=== PATIENT | male | born 1965 | race Caucasian/White ===

== ENCOUNTER 2024-02-09 18:10 | Emergency (ER) | payer BC, OTHER, SELFPAY ==
[2024-02-09] VITALS (13 sets, daily range): BP systolic 120–145; BP diastolic 60–90; PULSE 57–86; RESP 16–24; TEMP 36.8; O2SAT 93–100; BMI 30.3
[2024-02-09 18:46] LABS: Glucose Point of Care > 600 mg/dL (70-110)
[2024-02-09 18:56] LABS: Basophils # 0.1 10^3/uL (0.0-0.1); Basophils % 0.7 %; Eosinophils # 0.1 10^3/uL (0.0-0.8); Eosinophils % 0.4 %; Hematocrit 43.9 % (37-53); Lymphocytes # 2.6 10^3/uL (0.8-4.8); Lymphocytes % 21.7 %; Mean Corpuscular Hemoglobin 28.7 pg (27-33); Mean Corpuscular Volume 86.9 fl (82-101); Mean Platelet Volume 9.5 fL (7.4-10.4); Monocytes # 0.9 10^3/uL (0.2-0.9); Monocytes % 7.1 %; Neutrophils # 8.35 10^3/uL (1.8-7.7); Nucleated Red Blood Cells % 0 %; Platelet Count 439 10^3/cmm (157-399); Red Blood Count 5.05 10^6/uL (3.85-5.65)
[2024-02-09 19:10] LABS: Ketone (Acetest) Serum Negative (Negative)
--- NOTE | 2024-02-09 19:14 | W.ED.AMS ---
HPI - Altered Mental Status General: Chief Complaint: Altered Mental Status Stated Complaint: Hasnt been self. urinating alot Time Seen by Provider: 02/09/24 18:34 History of Present Illness: Patient presents to the ER with confusion over the last couple weeks. Patient says been getting worse. Patient says he is a diabetic but has not been taking any medicine for over the last 10 years. Patient says not really felt good or not really had a whole lot for the last week. Upon arrival to the ER patient did urinate upon himself. Patient has no other complaints at this time. Accu-Chek upon ER arrival blood glucose was greater than 600. Related Data Allergies Allergy/AdvReac Type Severity Reaction Status Date / Time No Known Allergies Allergy Verified 02/09/24 18:31 Review of Systems General: Reports: 10 or more systems reviewed and unremarkable except in HPI and below Physical Exam Const: COMMON NORMALS: no acute distress, average body habitus, patient oriented x3, no limitations, healthy appearing, alert and well nourished HENMT: COMMON NORMALS: normocephalic, atraumatic, hearing grossly normal bilaterally, external ears normal, Normal external nose present and moist oral mucous membranes HEAD & SCALP: normocephalic and atraumatic NOSE: Normal external nose present EXTERNAL EAR: Yes external ears normal Neck/C-Spine: COMMON NORMALS: no JVD Chest: COMMONS NORMALS: normal inspection of the chest and normal palpation of entire chest wall Resp: COMMON NORMALS: normal respiratory effort, No retractions, No use of accessory muscles and clear to auscultation bilaterally AUSCULTATION: clear to auscultation bilaterally Cardio: COMMON NORMALS: no JVD, regular rate, regular rhythm, S1 normal heart sound present, S2 normal heart sound present, No gallops present (Cardio), No clicks present (Cardio), No murmurs present (Cardio) and No rub (Cardio) RATE: regular rate RHYTHM: regular rhythm HEART SOUNDS: S1 normal heart sound present and S2 normal heart sound present GI: COMMON NORMALS: Normal to inspection, nondistended, normoactive bowel sounds present, Soft to palpation, non-tender, No hepatosplenomegaly present and no masses PALPATION: Yes Soft to palpation and Yes No hepatosplenomegaly present Neuro: COMMON NORMALS: patient oriented x3 SENSORIUM/ORIENTATION: Yes alert Course Vital Signs: Vital signs: Vital Signs Temperature 98.2 F 02/09/24 18:27 Pulse Rate 59 L 02/09/24 21:00 Respiratory Rate 22 H 02/09/24 21:00 Blood Pressure 120/60 02/09/24 21:00 Pulse Oximetry 96 02/09/24 21:00 Oxygen Delivery Me thod Room Air 02/09/24 19:30 MDM - Altered Mental Status Medical Decision Making Patient's blood sugar was 850, after tenets of IV insulin and liter normal saline I did decrease all way down to 482, patient is not in DKA due to his nonketosis and nonacidotic state. Dr. Espinoza at [facility] was consulted who agreed to take the patient to their med/tele bed since we have no beds at our facility. Medical Records I reviewed the patient's medical records. Lab Data I reviewed the patient's lab results. 02/09/24 18:50 02/09/24 18:50 Laboratory Results WBC 12.10 10^3/uL (3.29-11.43) H 02/09/24 18:50 RBC 5.05 10^6/uL (3.85-5.65) 02/09/24 18:50 Hgb 14.50 g/dL (11.27-16.99) 02/09/24 18:50 Hct 43.9 % (37-53) 02/09/24 18:50 MCV 86.9 fl (82-101) 02/09/24 18:50 MCH 28.7 pg (27-33) 02/09/24 18:50 MCHC 33.0 g/dL (30-55) 02/09/24 18:50 RDW 12.0 % (12.1-15.1) L 02/09/24 18:50 Plt Count 439 10^3/cmm (157-399) H 02/09/24 18:50 MPV 9.5 fL (7.4-10.4) 02/09/24 18:50 Neut % (Auto) 69.0 % 02/09/24 18:50 Lymph % (Auto) 21.7 % 02/09/24 18:50 [place] % (Auto) 7.1 % 02/09/24 18:50 Eos % (Auto) 0.4 % 02/09/24 18:50 Baso % (Auto) 0.7 % 02/09/24 18:50 Neut # (Auto) 8.35 10^3/uL (1.8-7.7) H 02/09/24 18:50 Lymph # (Auto) 2.6 10^3/uL (0.8-4.8) 02/09/24 18:50 [place] # (Auto) 0.9 10^3/uL (0.2-0.9) 02/09/24 18:50 Eos # (Auto) 0.1 10^3/uL (0.0-0.8) 02/09/24 18:50 Baso # (Auto) 0.1 10^3/uL (0.0-0.1) 02/09/24 18:50 Nucleated RBC % (auto) 0 % 02/09/24 18:50 Nucleated RBCs # 0.0 /100WBC 02/09/24 18:50 Specimen Type Arterial 02/09/24 20:15 Sample Site Radial, left 02/09/24 20:15 ABG pH 7.45 (7.35-7.45) 02/09/24 20:15 ABG pCO2 40.0 mmHg (35-45) 02/09/24 20:15 ABG pO2 77.1 mmHg (80.0-100.0) L 02/09/24 20:15 ABG HCO3 27.9 mmol/L (22-26) H 02/09/24 20:15 ABG O2 Saturation 96.8 02/09/24 20:15 ABG Base Excess 3.7 mmol/L (-2.0-2.0) H 02/09/24 20:15 Chris Test Pos 02/09/24 20:15 A-a O2 Gradient 2.9 mmHg (5-10) L 02/09/24 20:15 Hematocrit 43.0 % (42-52) 02/09/24 20:15 Hgb O2 Saturation 95.1 % (95-100) 02/09/24 20:15 Carboxyhemoglobin 1.0 %THgb (0.4-20.1) 02/09/24 20:15 Methemoglobin 0.8 % (0.4-1.5) 02/09/24 20:15 Total Hemoglobin 14.0 g/dL (14-18) 02/09/24 20:15 Sodium 127.0 mmol/L (131-143) L 02/09/24 20:15 Potassium 3.1 mmol/L (3.5-5.0) L 02/09/24 20:15 Glucose 587.0 mg/dL (70-115) H 02/09/24 20:15 Ionized Calcium 1.2 mmol/L (1.1-1.4) 02/09/24 20:15 O2 Delivery Device Room air 02/09/24 20:15 Prosthetic Aide ID [id number] 02/09/24 20:15 Sodium 118 mmol/L (136-145) L* 02/09/24 18:50 Potassium 3.9 mmol/L (3.5-5.1) 02/09/24 18:50 Chloride 81 mmol/L (98-107) L 02/09/24 18:50 Carbon Dioxide 23 mmol/L (22-29) 02/09/24 18:50 Anion Gap 17.9 (5-19) 02/09/24 18:50 BUN 10 mg/dL (6-20) 02/09/24 18:50 Creatinine 0.7 mg/dL (0.7-1.2) 02/09/24 18:50 GFR Calculation 115.4 mL/min (90-130) 02/09/24 18:50 Glucose 847 mg/dL (65-115) H* 02/09/24 18:50 POC Glucose 482 mg/dL (70-110) H 02/09/24 20:55 Calculated Osmolality 287 mOsm/kg (285-295) 02/09/24 18:50 Calcium 9.2 mg/dL (8.5-10.5) 02/09/24 18:50 Magnesium 2.0 mg/dL (1.7-2.3) 02/09/24 18:50 Total Bilirubin 1.1 mg/dL (0.15-1.2) 02/09/24 18:50 AST 56 U/L (0-40) H 02/09/24 18:50 ALT 49 U/L (0-41) H 02/09/24 18:50 Alkaline Phosphatase 206 U/L (40-130) H 02/09/24 18:50 Total Protein 6.8 g/dL (6.6-8.7) 02/09/24 18:50 Albumin 3.7 g/dL (3.5-5.2) 02/09/24 18:50 Globulin 3.1 g/dL (1.3-4.6) 02/09/24 18:50 Serum Ketones Negative (Negative) 02/09/24 18:50 All radiology interpretation(s) finalized by discharge Discharge Plan Discharge Patient Disposition: Xfer Short-Term Hosp Clinical Impression: Altered mental status, Uncontrolled diabetes mellitus with hyperglycemia Condition: Stable Patient Instructions: Altered Mental Status (ED) Coding Level of Care Code ED Plant Attendant Or Assistant Operator for Robel Hilliard
[2024-02-09 19:20] LABS: Alanine Aminotransferase 49 U/L (0-41); Albumin Level 3.7 g/dL (3.5-5.2); Alkaline Phosphatase 206 U/L (40-130); Blood Urea Nitrogen 10 mg/dL (6-20); Calcium 9.2 mg/dL (8.5-10.5); Carbon Dioxide 23 mmol/L (22-29); Chloride 81 mmol/L (98-107); Creatinine Clr Calc Pharmacy 144.1131; Globulin 3.1 g/dL (1.3-4.6); Glomerular Filtration Rate 115.4 mL/min (90-130); Total Bilirubin 1.1 mg/dL (0.15-1.2); Total Protein 6.8 g/dL (6.6-8.7)
[2024-02-09 19:29] LABS: Osmolality Calculated 287 mOsm/kg (285-295)
[2024-02-09 19:32] LABS: Anion Gap 17.9 (5-19); Aspartate Amino Transferase 56 U/L (0-40); Potassium 3.9 mmol/L (3.5-5.1)
[2024-02-09 19:35] LABS: Glucose 847 mg/dL (65-115); Sodium 118 mmol/L (136-145)
[2024-02-09] MEDS: sodium chloride 0.9% 1,000 ML 999 ML IV (19:49)
[2024-02-09] MEDS: insulin lispro 100 unit/1 mL 10 UNIT SUBCUT (19:53)
[2024-02-09 20:19] LABS: Glucose Point of Care 545 mg/dL (70-110)
[2024-02-09 20:26] LABS: ABG PH Result 7.45 (7.35-7.45); Alveolar-Arterial Oxygen Gradi 2.9 mmHg (5-10); Base Excess ABG 3.7 mmol/L (-2.0-2.0); Blood Gas Allen Test Pos; Blood Gas Sample Site Radial, left; Blood Gas Sample Type Arterial; HCO3 ABG 27.9 mmol/L (22-26); HGB O2 Sat 95.1 % (95-100); Ionized Calcium Level - ABG 1.2 mmol/L (1.1-1.4); Methemoglobin 0.8 % (0.4-1.5); Oxygen Device ROOM AIR; Oxygen Saturation ABG 96.8; PO2 ABG 77.1 mmHg (80.0-100.0); Potassium Level - ABG 3.1 mmol/L (3.5-5.0)
[2024-02-09 20:58] LABS: Glucose Point of Care 482 mg/dL (70-110)
== END 2024-02-09 23:23 | disposition short-term general hospital (02) ==
PROVIDERS: Emergency Medicine; Emergency Provider Emergency Medicine
DX: R41.82 Altered mental status, unspecified (principal); E11.65 Type 2 diabetes mellitus with hyperglycemia
CPT/HCPCS: 36415; 36416; 36600; 80051; 80053; 82009; 82330; 82805; 82962; 83735; 85025; 96372; 99285; J1815; J7030

== ENCOUNTER 2024-02-16 06:15 | Emergency (ER) | payer OTHER, SELFPAY ==
[2024-02-16] VITALS (7 sets, daily range): BP systolic 120–135; BP diastolic 79–93; PULSE 79–118; RESP 16–24; TEMP 37; O2SAT 93–96; BMI 26.4
[2024-02-16 06:33] LABS: Glucose Point of Care 437 mg/dL (70-110)
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
--- NOTE | 2024-02-16 06:44 | XRR_ITS ---
PROCEDURE INFORMATION: Exam: XR Left Shoulder Exam date and time: 02/16/2024 6:54 AM Age: 58 years old Clinical indication: Pain and injury or trauma; Fall; Blunt trauma (contusions or hematomas); Shoulder; Left TECHNIQUE: Imaging protocol: Radiologic exam of the left shoulder. Views: 2 or more views. COMPARISON: No relevant prior studies available. FINDINGS: Bones/joints: No fracture or dislocation is noted. There are degenerative changes involving the AC joint. The glenohumeral joint is intact. Bony mineralization is normal. Soft tissues: Normal. XR/XR shoulder LT min 2V* [id number] IMPRESSION: 1. Moderate AC joint osteoarthritis.
[2024-02-16 06:52] LABS: ABG PCO2 36.6 mmHg (35-45); ABG PH Result 7.46 (7.35-7.45); Alveolar-Arterial Oxygen Gradi 4.5 mmHg (5-10); Arterial Blood Gas Hematocrit 43.2 % (42-52); Base Excess ABG 2.2 mmol/L (-2.0-2.0); Blood Gas Allen Test Pos; Blood Gas Operator Identificat SAM; Blood Gas Sample Site Radial, right; Blood Gas Sample Type Arterial; Carboxyhemoglobin 1.4 %THgb (0.4-20.1); HCO3 ABG 25.9 mmol/L (22-26); HGB O2 Sat 94.2 % (95-100); Ionized Calcium Level - ABG 1.2 mmol/L (1.1-1.4); Methemoglobin 0.5 % (0.4-1.5); PO2 ABG 69.1 mmHg (80.0-100.0); PO2 FiO2 Ratio Arterial Blood 329; Potassium Level - ABG 3.4 mmol/L (3.5-5.0); Total Hemoglobin 14.1 g/dL (14-18)
[2024-02-16 07:02] LABS: Basophils % 0.4 %; Eosinophils # 0.3 10^3/uL (0.0-0.8); Eosinophils % 2.7 %; Hematocrit 42.2 % (37-53); Lymphocytes # 1.2 10^3/uL (0.8-4.8); Lymphocytes % 10.4 %; Mean Corpuscular HGB Conc 33.6 g/dL (30-55); Mean Corpuscular Volume 86.1 fl (82-101); Mean Platelet Volume 8.6 fL (7.4-10.4); Monocytes # 0.5 10^3/uL (0.2-0.9); Monocytes % 4.4 %; Nucleated Red Blood Cells % 0 %; Platelet Count 375 10^3/cmm (157-399); Red Cell Distribution Width 12.1 % (12.1-15.1); White Blood Count 11.35 10^3/uL (3.29-11.43)
[2024-02-16 07:13] LABS: Ketone (Acetest) Serum Negative (Negative)
[2024-02-16] MEDS: sodium chloride 0.9% 1,000 ML 999 ML IV (07:14)
[2024-02-16] MEDS: insulin regular-human 100 units/1 mL 15 UNIT IVP (07:14)
[2024-02-16 07:17] LABS: Alanine Aminotransferase 29 U/L (0-41); Albumin Level 3.4 g/dL (3.5-5.2); Alcohol Level 12 mg/dL (0-10); Alkaline Phosphatase 120 U/L (40-130); Anion Gap 12.8 (5-19); Aspartate Amino Transferase 24 U/L (0-40); Blood Urea Nitrogen 12 mg/dL (6-20); Calcium 8.5 mg/dL (8.5-10.5); Carbon Dioxide 26 mmol/L (22-29); Chloride 97 mmol/L (98-107); Globulin 2.9 g/dL (1.3-4.6); Glomerular Filtration Rate 137.9 mL/min (90-130); Glucose 259 mg/dL (65-115); Osmolality Calculated 283 mOsm/kg (285-295); Potassium 3.8 mmol/L (3.5-5.1); Sodium 132 mmol/L (136-145); Total Bilirubin 1.3 mg/dL (0.15-1.2); Total Protein 6.3 g/dL (6.6-8.7)
[2024-02-16 08:12] LABS: Glucose Point of Care 206 mg/dL (70-110)
[2024-02-16 08:42] LABS: Bilirubin Urine Negative (Negative); Blood Urine Negative (Negative); Glucose Urine UA 3+ (Normal); Ketones Urine Trace (Negative); Leukocyte Esterase Urine Negative (Negative); Nitrate Urine Negative (Negative); Protein Urine Trace (Negative); Urine Appearance Clear (CLEAR); Urine Color Yellow (Yellow)
[2024-02-16 08:44] LABS: Specific Gravity, Urine 1.042 (1.005-1.030)
[2024-02-16 08:47] LABS: Add Urine Microscopic? YES; Bacteria Urine None Seen /hpf; Hyaline Casts Urine 0-4 /lpf; RBC Urine 0-2 /hpf (0-2); Squamous Epithelial Cell Urine 0-5 /hpf (0-5); WBC Urine 0-5 /hpf (0-5)
[2024-02-16 08:49] LABS: Amphetamines Screen Urine Positive (Negative); Barbiturates Screen Urine Negative (Negative); Benzodiazepines Screen Urine Negative (Negative); Cocaine Screen Urine Negative (Negative); Opiate Screen Urine Negative (Negative); PCP Screen Urine Negative (Negative); THC Screen Urine Negative (Negative)
== END 2024-02-16 09:08 | disposition home or self-care (01) ==
PROVIDERS: Emergency Provider Family Medicine
DX: M25.511 Pain in right shoulder (principal); R73.9 Hyperglycemia, unspecified; Z79.84 Long term (current) use of oral hypoglycemic drugs; Z79.4 Long term (current) use of insulin
CPT/HCPCS: 36415; 36416; 36600; 73030; 80051; 80053; 80306; 80307; 81001; 82009; 82330; 82805; 82962; 85025; 96361; 96374; 99284; J1815; J7030

== ENCOUNTER 2024-02-16 10:05 | Emergency (ER) | payer SELFPAY ==
[2024-02-16 10:20] VITALS: BP 113/70; PULSE 90; RESP 18; TEMP 36.7; O2SAT 95
--- NOTE | 2024-02-16 10:43 | W.ED.PSYCHS ---
HPI - Psych General: Chief Complaint: Psychiatric Symptoms Stated Complaint: 96 Time Seen by Provider: 02/16/24 10:12 History of Present Illness: 58-year-old male was here literally within the last hour. At that time he was complaining of shoulder pain avoid blood sugars see the note for that workup. He returns in the custody of [facility]'s department with a 96-hour hold affidavit basically states he has been resistant and noncompliant to his treating his medical issues and using drugs and alcohol. No suicidal or homicidal ideation. Labs reviewed from the previous visit today. Added other labs for medical clearance. Patient did test positive for amphetamines and he was here earlier. Related Data Home Medications Medication Instructions Recorded Confirmed insulin aspart U-100 100 unit/mL 8 unit SUBCUT TID 02/16/24 02/16/24 (3 mL) subcutaneous pen (Novolog FlexPen U-100 Insulin aspart) metformin 500 mg tablet 500 mg PO BID 02/16/24 02/16/24 Allergies Allergy/AdvReac Type Severity Reaction Status Date / Time No Known Allergies Allergy Verified 02/16/24 06:20 Review of Systems Const: Denies: fever(s) or chills Card: Denies: chest pain Resp: Denies: dyspnea GI: Denies: abdominal pain : Denies: dysuria, urinary frequency or urinary urgency Musc: Denies: neck pain or back pain Skin/Breast: Denies: rash Physical Exam Const: COMMON NORMALS: no acute distress GENERAL APPEARANCE: cooperative and comfortable ORIENTATION/CONSCIOUSNESS: Yes awake, Yes oriented to person, Yes oriented to place and Yes oriented to time HENMT: COMMON NORMALS: normocephalic and hearing grossly normal bilaterally HEAD & SCALP: normocephalic OTHER: Laceration above the right eyebrow with dried blood unchanged from when seen earlier today Resp: COMMON NORMALS: normal respiratory effort, No retractions, No use of accessory muscles and clear to auscultation bilaterally AUSCULTATION: clear to auscultation bilaterally Cardio: COMMON NORMALS: regular rate, regular rhythm and No murmurs present (Cardio) RATE: regular rate RHYTHM: regular rhythm GI: COMMON NORMALS: Soft to palpation and No hepatosplenomegaly present AUSCULTATION: Yes normoactive bowel sounds PALPATION: Yes Soft to palpation, No Tenderness to palpation present (GI), No Guarding due to palpation present (GI) and Yes No hepatosplenomegaly present Extremity: COMMON NORMALS: normal to inspection, capillary refill normal, no clubbing, cyanosis or edema, no calf tenderness and no pedal edema Neuro: SENSORIUM/ORIENTATION: Yes oriented to person, Yes oriented to place and Yes oriented to time Skin: COMMON NORMALS: no rashes or lesions noted GENERAL SKIN EXAM: no rashes or lesions noted Course Vital Signs: Vital signs: Vital Signs Temperature 98.1 F 02/16/24 10:20 Pulse Rate 90 02/16/24 10:20 Respiratory Rate 18 02/16/24 10:20 Blood Pressure 113/70 02/16/24 10:20 Pulse Oximetry 95 02/16/24 10:20 Oxygen Delivery Me thod Room Air 02/16/24 10:20 MDM - Psych Medical Decision Making 96-hour hold reviewed. Consult with psychiatry. Patient is not homicidal or suicidal he is noncompliant and has a history and ongoing of substance abuse. At this point Dr. Cruz and I both agree he does not require inpatient psychiatric care. Dr. Cruz has rescinded the 96-hour hold. Discussed inpatient importance of compliance with his diabetic regimen. Lab Data Laboratory Results Salicylates < 0.3 mg/dL (3-10) L 02/16/24 06:50 Acetaminophen < 5.0 ug/mL (10-30) L 02/16/24 06:50 No radiology studies performed this visit Discharge Plan Discharge Patient Disposition: Home Clinical Impression: Shoulder pain, right Uncontrolled diabetes mellitus with hyperglycemia Qualifiers: Diabetes mellitus type: type 2 Qualified Code(s): E11.65 - Type 2 diabetes mellitus with hyperglycemia Condition: Stable Prescriptions: No Action metformin 500 mg tablet 500 mg PO BID insulin aspart U-100 [Novolog FlexPen U-100 Insulin] 100 unit/mL (3 mL) insulin pen 8 unit SUBCUT TID Rx Instructions: subcutaneously Discharge Orders: Discharge ED (Routine); Ordered 02/16/24 Ordered By: Abel Boyer Discharge Diet: Diabetic Discharge Activity: Resume usual activity Patient Instructions: Opioid Safety, Pain Management Activity Restrictions/Additional Instructions: Thank you for choosing [facility] for your healthcare needs today. It is very important that you follow up as instructed or that you return to the Emergency Department should you have concerns or if your condition changes or worsens in any way. You are seen this morning under 96-hour hold. 96-hour hold was reviewed by the psychiatrist psychiatrist seen and evaluated you and felt you did not require inpatient psychiatric care at this time. Recommend that you follow-up with [facility]. Strongly recommend that you follow your diabetic treatment plan and follow-up with your primary care provider regularly to make adjustments to control your blood sugar. Coding Level of Care Code ED Risk Control Field Representative for Robel Hilliard
[2024-02-16 10:58] LABS: Acetaminophen < 5.0 ug/mL (10-30); Salicylate < 0.3 mg/dL (3-10)
[2024-02-16] MEDS: ketorolac 30 mg/mL INJ 60 MG IM (11:17)
[2024-02-16] MEDS: acetaminophen 325 mg Tablet 650 MG PO (11:17)
--- NOTE | 2024-02-16 13:02 | W.PM.PSYCONS ---
Providers/Reason for Consult Consulting Physican/Specialty*: Robin Pastor MD Reason for Consult*: 96 hour hold Primary Psychiatrist/Therapist: Robin Pastor MD Psych Consult HPI History of Present Illness Santiago Oviedo is a 58 year old male allegedly making statements to harm himself and resistant to treatment leading to a 96-hour hold being placed on the patient. The patient was evaluated briefly and did not appear to be intoxicated. He had endorsed having used amphetamines before in the past. He had denied having thoughts of hurting himself or others. He had reported that he did not need any psychiatric treatment at this time. Meds Home Medications and Allergies Home Medications Medication Instructions Recorded Confirmed Last Taken Type insulin aspart U-100 100 unit/mL 8 unit SUBCUT TID 02/16/24 02/16/24 Unknown History (3 mL) subcutaneous pen (Novolog FlexPen U-100 Insulin aspart) metformin 500 mg tablet 500 mg PO BID 02/16/24 02/16/24 Unknown History Allergies Allergy/AdvReac Type Severity Reaction Status Date / Time No Known Allergies Allergy Verified 02/16/24 06:20 Mental Status Exam MSE Comments: Patient is a surly male who appeared his stated age with mild distress. His speech was normal in rate rhythm and productivity. His mood was described as fine. His affect was slightly irritable. He denied any homicidal or suicidal ideation. His attention span appeared fair. His insight was poor. His judgment at this time was adequate. His impulse control appeared limited. There was no clear evidence of delusional thinking. He did not appear to be responding internal stimuli. He was alert and oriented person place time and situation. Vitals/I&O/Wt Last Vital Signs Temp 98.1 F 02/16/24 10:20 Pulse 90 02/16/24 10:20 Resp 18 02/16/24 10:20 BP 113/70 02/16/24 10:20 Pulse Ox 95 02/16/24 10:20 O2 Del Method Room Air 02/16/24 10:20 A&P Assessment and plan (1) Adjustment disorder with disturbance of conduct: (2) Methamphetamine use disorder, mild: Plan Rescinded 96 hour hold. Attestations NPU Medical Necessity Statement*: inpatient psychiatric hospitalization unnecessary. Coding Level of Care Code Acute Code for Chg Fwd Diagnoses Adjustment disorder with disturbance of conduct F43.24 Methamphetamine use disorder, mild F15.10
== END 2024-02-16 12:38 | disposition home or self-care (01) ==
PROVIDERS: Emergency Provider Family Medicine
DX: M25.511 Pain in right shoulder (principal); E11.65 Type 2 diabetes mellitus with hyperglycemia; Z79.84 Long term (current) use of oral hypoglycemic drugs; Z79.4 Long term (current) use of insulin
CPT/HCPCS: 80307; 96372; 99284; J1885

== ENCOUNTER 2024-03-20 19:41 | Emergency (ER) | payer MEDICAID, SELFPAY ==
[2024-03-20 19:51] VITALS: BP 118/76; PULSE 82; RESP 18; TEMP 37.2; O2SAT 96; BMI 27.1
[2024-03-20 20:00] LABS: Glucose Point of Care 592 mg/dL (70-110)
[2024-03-20 21:03] LABS: Basophils # 0.1 10^3/uL (0.0-0.1); Basophils % 0.9 %; Eosinophils # 0.2 10^3/uL (0.0-0.8); Hematocrit 47.6 % (37-53); Lymphocytes # 1.8 10^3/uL (0.8-4.8); Mean Corpuscular HGB Conc 32.6 g/dL (30-55); Mean Corpuscular Hemoglobin 28.8 pg (27-33); Mean Corpuscular Volume 88.3 fl (82-101); Mean Platelet Volume 8.7 fL (7.4-10.4); Monocytes # 0.9 10^3/uL (0.2-0.9); Monocytes % 10.4 %; Neutrophils # 5.54 10^3/uL (1.8-7.7); Neutrophils % 65.2 %; Nucleated Red Blood Cells % 0 %; Platelet Count 340 10^3/cmm (157-399); Red Blood Count 5.39 10^6/uL (3.85-5.65); Red Cell Distribution Width 11.9 % (12.1-15.1); White Blood Count 8.49 10^3/uL (3.29-11.43)
[2024-03-20 21:22] LABS: Alanine Aminotransferase 22 U/L (0-41); Albumin Level 3.6 g/dL (3.5-5.2); Alkaline Phosphatase 141 U/L (40-130); Aspartate Amino Transferase 15 U/L (0-40); Blood Urea Nitrogen 11 mg/dL (6-20); Calcium 9.1 mg/dL (8.5-10.5); Carbon Dioxide 22 mmol/L (22-29); Chloride 92 mmol/L (98-107); Creatinine Clr Calc Pharmacy 133.1473; Globulin 3.4 g/dL (1.3-4.6); Glomerular Filtration Rate 115.4 mL/min (90-130); Osmolality Calculated 287 mOsm/kg (285-295); Sodium 127 mmol/L (136-145)
[2024-03-20 21:27] LABS: Glucose 525 mg/dL (65-115)
[2024-03-20 22:26] VITALS: BP 155/96; PULSE 70; RESP 18; O2SAT 99
[2024-03-20 22:30] VITALS: BP 144/96; PULSE 76; O2SAT 99
--- NOTE | 2024-03-20 22:52 | CTR_ITS ---
PROCEDURE INFORMATION: Exam: CT Head Without Contrast Exam date and time: 03/20/2024 11:02 PM Age: 58 years old Clinical indication: Weakness, extremity; Patient HX: Patient having uncontrollable movements of left upper extremity. ; Additional info: Abnormal movements of only the L arm TECHNIQUE: Imaging protocol: Computed tomography of the head without contrast. Radiation optimization: All CT scans at this facility use at least one of these dose optimization techniques: automated exposure control; mA and/or kV adjustment per patient size (includes targeted exams where dose is matched to clinical indication); or iterative reconstruction. COMPARISON: No relevant prior studies available. RADIATION DOSE METRICS: Total DLP (mGy-cm): 1094.98 FINDINGS: Brain: No CT evidence for acute ischemia, mass or hemorrhage. No extra-axial fluid collection, midline shift or hydrocephalus. Cerebral ventricles: See Brain finding. Paranasal sinuses: Scattered mucosal thickening in the paranasal sinuses without fluid levels. Mastoid air cells: Visualized mastoid air cells are well aerated. Bones: Unremarkable. No acute fracture. Soft tissues: Unremarkable. CT/CT head wo con* [id number] IMPRESSION: 1. No acute intracranial findings. 2. Paranasal sinus mucosal thickening.
--- NOTE | 2024-03-20 22:53 | ED_ITS ---
HPI - Neuro Symptoms/Deficit 2 General: Chief Complaint: Neuro Symptoms/Deficit Stated Complaint: Uncontrolled left arm movement Time Seen by Provider: 03/20/24 22:29 Source: patient and family Mode of arrival: ambulatory Limitations: no limitations History of Present Illness: Patient reports uncontrollable of the movements of the left arm since February 09. Only relief is to sit on it. He does wake him from sleep sometimes due to it. No pain. Reports that he controls his sugars pretty well however he has not able to really check him or give himself shots in the past month secondary to his left arm moving. Related Data Home Medications Medication Instructions Recorded Confirmed insulin aspart U-100 100 unit/mL 8 unit SUBCUT TID 02/16/24 02/16/24 (3 mL) subcutaneous pen (Novolog FlexPen U-100 Insulin aspart) metformin 500 mg tablet 500 mg PO BID 02/16/24 02/16/24 Previous Rx's Medication Instructions Recorded levetiracetam 750 mg tablet 750 mg PO BID 30 days #60 tabs 03/21/24 (Keppra) Allergies Allergy/AdvReac Type Severity Reaction Status Date / Time No Known Allergies Allergy Verified 02/16/24 06:20 Review of Systems 2 General: Reports: 10 or more systems reviewed and unremarkable except in HPI and below Physical Exam 2 Const: COMMON NORMALS: no acute distress, average body habitus, patient oriented x3, healthy appearing, alert and well nourished GENERAL APPEARANCE: cooperative, well kempt and well developed HENMT: COMMON NORMALS: normocephalic, atraumatic, external ears normal and moist oral mucous membranes HEAD & SCALP: normocephalic and atraumatic E XTERNAL EAR: Yes external ears normal Eye: COMMON NORMALS: Equal, round and reactive pupils present, EOMs intact bilaterally and conjunctivae normal CONJUNCTIVA: Yes conjunctivae normal P UPIL: Yes Equal, round and reactive pupils present Neck/C-Spine: COMMON NORMALS: full ROM, no lymphadenopathy and supple Chest: CHEST: Yes Symmetrical chest wall rise and No Surgical scars present (Chest) Resp: COMMON NORMALS: normal respiratory effort, No retractions, No use of accessory muscles and clear to auscultation bilaterally AUSCULTATION: clear to auscultation bilaterally Cardio: COMMON NORMALS: regular rate, regular rhythm, S1 normal heart sound present, S2 normal heart sound present, No gallops present (Cardio), No clicks present (Cardio), No murmurs present (Cardio) and No rub (Cardio) RATE: r egular rate RHYTHM: regular rhythm HEART SOUNDS: S1 normal heart sound present, S2 normal heart sound present and no murmurs PERIPHERAL PULSES: o ther (Radial pulses 2+ and symmetric) GI: COMMON NORMALS: Soft to palpation, non-tender and no masses INSPECTION: No abdominal distension PALPATION: Yes Soft to palpation, No Guarding due to palpation present (GI) and No Rebound tenderness present : COMMON NORMALS: Yes no CVA tenderness BLADDER/KIDNEY EXAM: Yes no CVA tenderness Back/Pelvis: COMMON NORMALS: no CVA tenderness Extremity: COMMON NORMALS: normal to inspection, full ROM, capillary refill normal and no clubbing, cyanosis or edema Neuro: COMMON NORMALS: patient oriented x3 and CN's II-XII intact bilaterally SENSORIUM/ORIENTATION: Yes alert MOTOR EXAM: 5/5 motor strength present throughout OTHER: When patient is not sitting on his left arm, his left arm proceeds to move all over the place and uncoordinated movements and you can see some flexing of the left neck muscles during that time. When he sits on his hand there are no flexing of the left neck and shoulder muscles. Psych: APPEARANCE: Yes well kempt Skin: COMMON NORMALS: no rashes or lesions noted, no wounds, turgor normal and no jaundice GENERAL SKIN EXAM: no rashes or lesions noted and turgor normal Course 2 Vital Signs: Vital signs: Vital Signs Temperature 99.0 F 03/20/24 19:51 Pulse Rate 79 03/20/24 23:21 Respiratory Rate 18 03/20/24 22:26 Blood Pressure 152/86 03/20/24 23:21 Pulse Oximetry 96 03/20/24 23:21 Oxygen Delivery Me thod Room Air 03/20/24 23:21 MDM - Neuro Symptoms/Deficit Medical Decision Making Patient does seem to move his arm when sleeping as well, so while with his meth this could be something psychiatric, I do question if it is not a true movement disorder of some type such as alien hand syndrome. Patient already knows that he needs to follow-up with neurology encouraged that plan. Will give him a trial of Keppra for a month to see if that helps. Differential Diagnosis Likely convulsions, delirium and cerebrovascular accident Medical Records I reviewed the patient's medical records. Lab Data I reviewed the patient's lab results. 03/20/24 20:57 03/20/24 20:[address] 03/20/24 22:52 IMPRESSION: 1. No acute intracranial findings. 2. Paranasal sinus mucosal thickening. Laboratory Results WBC 8.49 10^3/uL (3.29-11.43) 03/20/24 20:57 RBC 5.39 10^6/uL (3.85-5.65) 03/20/24 20:57 Hgb 15.50 g/dL (11.27-16.99) 03/20/24 20:57 Hct 47.6 % (37-53) 03/20/24 20:57 MCV 88.3 fl (82-101) 03/20/24 20:57 MCH 28.8 pg (27-33) 03/20/24 20:57 MCHC 32.6 g/dL (30-55) 03/20/24 20:57 RDW 11.9 % (12.1-15.1) L 03/20/24 20:57 Plt Count 340 10^3/cmm (157-399) 03/20/24 20:57 MPV 8.7 fL (7.4-10.4) 03/20/24 20:57 Neut % (Auto) 65.2 % 03/20/24 20:57 Lymph % (Auto) 21.0 % 03/20/24 20:57 [place] % (Auto) 10.4 % 03/20/24 20:57 Eos % (Auto) 2.0 % 03/20/24 20:57 Baso % (Auto) 0.9 % 03/20/24 20:57 Neut # (Auto) 5.54 10^3/uL (1.8-7.7) 03/20/24 20:57 Lymph # (Auto) 1.8 10^3/uL (0.8-4.8) 03/20/24 20:57 [place] # (Auto) 0.9 10^3/uL (0.2-0.9) 03/20/24 20:57 Eos # (Auto) 0.2 10^3/uL (0.0-0.8) 03/20/24 20:57 Baso # (Auto) 0.1 10^3/uL (0.0-0.1) 03/20/24 20:57 Nucleated RBC % (auto) 0 % 03/20/24 20:57 Nucleated RBCs # 0.0 /100WBC 03/20/24 20:57 Sodium 127 mmol/L (136-145) L 03/20/24 20:57 Potassium 4.0 mmol/L (3.5-5.1) 03/20/24 20:57 Chloride 92 mmol/L (98-107) L 03/20/24 20:57 Carbon Dioxide 22 mmol/L (22-29) 03/20/24 20:57 Anion Gap 17.0 (5-19) 03/20/24 20:57 BUN 11 mg/dL (6-20) 03/20/24 20:57 Creatinine 0.7 mg/dL (0.7-1.2) 03/20/24 20:57 GFR Calculation 115.4 mL/min (90-130) 03/20/24 20:57 Glucose 525 mg/dL (65-115) H* 03/20/24 20:57 POC Glucose 367 mg/dL (70-110) H 03/20/24 23:15 Calculated Osmolality 287 mOsm/kg (285-295) 03/20/24 20:57 Calcium 9.1 mg/dL (8.5-10.5) 03/20/24 20:57 Total Bilirubin 1.0 mg/dL (0.15-1.2) 03/20/24 20:57 AST 15 U/L (0-40) 03/20/24 20:57 ALT 22 U/L (0-41) 03/20/24 20:57 Alkaline Phosphatase 141 U/L (40-130) H 03/20/24 20:57 Total Protein 7.0 g/dL (6.6-8.7) 03/20/24 20:57 Albumin 3.6 g/dL (3.5-5.2) 03/20/24 20:57 Globulin 3.4 g/dL (1.3-4.6) 03/20/24 20:57 All radiology interpretation(s) finalized by discharge ED provider radiology interpretation(s): CT personally reviewed and I see no acute abnormality. Discharge Plan Discharge Patient Disposition: Home Clinical Impression: Alien hand syndrome Uncontrolled type 2 diabetes mellitus Qualifiers: Glycemic state: with hyperglycemia Qualified Code(s): E11.65 - Type 2 diabetes mellitus with hyperglycemia Condition: Stable Prescriptions: New levetiracetam [Keppra] 750 mg tablet 750 mg PO BID 30 Days Qty: 60 0RF No Action metformin 500 mg tablet 500 mg PO BID insulin aspart U-100 [Novolog FlexPen U-100 Insulin] 100 unit/mL (3 mL) insulin pen 8 unit SUBCUT TID Rx Instructions: subcutaneously Discharge Orders: Discharge ED (Routine); Ordered 03/21/24 Ordered By: Jamie Goodwin Discharge Diet: Usual diet Discharge Activity: Resume usual activity Patient Instructions: Diabetic Hyperglycemia (ED) Activity Restrictions/Additional Instructions: Continue to follow-up with neurology as you had planned. Coding Level of Care Code ED Provider Education Specialist for Robel Hilliard
[2024-03-20] MEDS: insulin lispro 100 unit/1 mL 10 UNIT SUBCUT (23:16)
[2024-03-20] MEDS: baclofen 10 mg Tablet 20 MG PO (23:19)
[2024-03-20] MEDS: levETIRAcetam 500 mg Tablet 1500 MG PO (23:19)
[2024-03-20 23:21] VITALS: BP 152/86; PULSE 79; O2SAT 96
[2024-03-20 23:21] LABS: Glucose Point of Care 367 mg/dL (70-110)
[2024-03-21 00:48] VITALS: BP 150/94; PULSE 79; RESP 18; O2SAT 99
== END 2024-03-21 00:50 | disposition home or self-care (01) ==
PROVIDERS: Emergency Provider Emergency Medicine
DX: R41.4 Neurologic neglect syndrome (principal); E11.65 Type 2 diabetes mellitus with hyperglycemia; Z79.84 Long term (current) use of oral hypoglycemic drugs; Z79.4 Long term (current) use of insulin
CPT/HCPCS: 36415; 36416; 70450; 80053; 82962; 85025; 96372; 99284; J1815

== ENCOUNTER 2024-03-22 20:47 | Emergency (ER) | payer MEDICAID, SELFPAY ==
[2024-03-22 20:55] VITALS: BP 161/95; PULSE 80; RESP 16; TEMP 36.7; O2SAT 100; BMI 27.1
[2024-03-22] MEDS: LORazepam 2 mg/mL INJ 1 mL IM (21:15)
--- NOTE | 2024-03-22 21:15 | ED_ITS ---
HPI - Extremity Problem General: Chief complaint: Extremity Problem,Nontraumatic Stated complaint: shoulder in pain Time Seen by Provider: 03/22/24 21:05 Source: patient Mode of arrival: ambulatory Limitations: no limitations History of Present Illness: 58-year-old male who has been seen here multiple times states he has uncontrollable movement of his left arm and has been having this for some time seen here yesterday as well. Has a history of meth abuse as well he has been try to get follow-up with neurology states he is having some pain in that arm currently denies any injury Related Data Home Medications Medication Instructions Recorded Confirmed insulin aspart U-100 100 unit/mL 8 unit SUBCUT TID 02/16/24 02/16/24 (3 mL) subcutaneous pen (Novolog FlexPen U-100 Insulin aspart) metformin 500 mg tablet 500 mg PO BID 02/16/24 02/16/24 Previous Rx's Medication Instructions Recorded levetiracetam 750 mg tablet 750 mg PO BID 30 days #60 tabs 03/21/24 (Keppra) Allergies Allergy/AdvReac Type Severity Reaction Status Date / Time No Known Allergies Allergy Verified 03/22/24 20:58 Course Vital Signs: Vital signs: Vital Signs Temperature 98.1 F 03/22/24 20:55 Pulse Rate 80 03/22/24 20:55 Respiratory Rate 16 03/22/24 20:55 Blood Pressure 161/95 03/22/24 20:55 Pulse Oximetry 100 03/22/24 20:55 Oxygen Delivery Me thod Room Air 03/22/24 20:55 MDM - Extremity (Nontraumatic) Medical Decision Making Patient presents here involuntary movements left arm did give him Cogentin Ativan here he has had workup in the past no signs of stroke we will put neuro referral and he is to follow-up return if worsening Medical Records I reviewed the patient's medical records. No radiology studies performed this visit Discharge Plan Discharge Patient Disposition: Home Clinical Impression: Arm and leg movements, uncontrollable Condition: Stable Prescriptions: No Action metformin 500 mg tablet 500 mg PO BID insulin aspart U-100 [Novolog FlexPen U-100 Insulin] 100 unit/mL (3 mL) insulin pen 8 unit SUBCUT TID Rx Instructions: subcutaneously levetiracetam [Keppra] 750 mg tablet 750 mg PO BID 30 Days Qty: 60 0RF Discharge Orders: Discharge ED (Routine); Ordered 03/22/24 Ordered By: Vadim Duran Discharge Diet: Advance as tolerated Discharge Activity: Resume usual activity Patient Instructions: Shoulder Pain (ED) Coding Level of Care Code ED Secondary Market Manager for Robel Hilliard
[2024-03-22] MEDS: benztropine 1 mg/mL SDV 2 mL IM (21:17)
[2024-03-22 21:35] VITALS: BP 161/95; PULSE 80; O2SAT 100
--- NOTE | 2024-03-23 13:14 | DCPLANNER ---
Message sent to Neurology for follow up/ Referral
== END 2024-03-22 21:38 | disposition home or self-care (01) ==
PROVIDERS: Emergency Provider Emergency Medicine
DX: R25.9 Unspecified abnormal involuntary movements (principal); Z79.4 Long term (current) use of insulin; Z79.84 Long term (current) use of oral hypoglycemic drugs
CPT/HCPCS: 96372; 99284; J0515; J2060

== ENCOUNTER → 2024-06-10 08:11 | Outpatient (BNVA) | payer OTHER, MEDICAID, SELFPAY | PROVIDERS: PCP Family Medicine; Visit Provider Family Medicine | DX: E11.00 Type 2 diabetes mellitus with hyperosmolarity without nonketotic hyperglycemic-hyperosmolar coma (NKHHC) (principal); Z13.6 Encounter for screening for cardiovascular disorders; E11.9 Type 2 diabetes mellitus without complications; R35.1 Nocturia; G25.5 Other chorea; F15.10 Other stimulant abuse, uncomplicated | CPT/HCPCS: 80053; 80061; 80307; 82043; 83036; 84153; 84439; 84443; 85025; 85651 ==

== ENCOUNTER → 2024-06-22 09:15 | Outpatient (BNVA) | payer OTHER, MEDICAID, SELFPAY | PROVIDERS: PCP Family Medicine; Visit Provider Family Medicine | DX: G25.5 Other chorea (principal); F15.10 Other stimulant abuse, uncomplicated | CPT/HCPCS: 86038 ==